=== PATIENT | female | born 1965 | race Caucasian/White ===

== ENCOUNTER 2023-07-14 16:31 | Emergency (ER) | payer MEDICAID, OTHER ==
[~2023-07-14] VITALS: Ht 165.1 cm; Wt 72.4 kg
[2023-07-14 18:29] LABS: Urine Bacteria NONE SEEN /hpf (None Seen); Urine Blood Negative /uL (Negative); Urine Clarity HAZY (Clear); Urine Color Yellow (Yellow); Urine Hyaline Cast FEW /lpf (0 - 2); Urine Mucus FEW (None Seen); Urine Protein, UAD 1+ (Negative); Urine Specific Gravity 1.035 (1.001-1.035); Urine WBC 8 /hpf (0 - 5); Urine pH 5.5 (5.0-8.0)
[2023-07-14] MEDS: HYDROmorphone HCL 2 MG/ML VL/or syr IM ONE (18:46)
[2023-07-14 19:06] LABS: Basophils # (auto) 0 10 ^3/uL (0-0.2); Basophils % (auto) 0.2 % (0.0-2.0); Eosinophils # (auto) 0.2 10 ^3/uL (0-0.8); Hematocrit 49.3 % (36.0-46.0); Hemoglobin 16.4 g/dL (12.2-16.2); Lymphocytes # (auto) 2.3 10 ^3/uL (0.4-5.4); Lymphocytes % (auto) 21.2 % (10.0-50.0); Mean Corpuscular Hemoglobin 30.2 pg (28.0-32.0); Mean Corpuscular Hgb Conc. 33.3 g/dL (32.0-36.0); Mean Corpuscular Volume 90.8 fL (80.0-100.0); Monocytes # (auto) 0.6 10 ^3/uL (0-1.3); Neutrophils # (auto) 7.6 10 ^3/uL (1.6-8.6); Neutrophils % (auto) 70.6 % (37.0-80.0); Nucleated Red Blood Cells % 0.1 %; Red Blood Cells 5.43 10^6/uL (4.0-5.20); Red Cell Distribution Width 13.3 % (11.8-14.3); White Blood Cell 10.8 10^3/uL (4.4-10.8)
[2023-07-14 19:25] LABS: Alanine Aminotransferase 18 U/L (7-40); Albumin 4.7 g/dL (3.2-4.8); Alkaline Phosphatase 87 U/L (46-116); Anion Gap 9 (5-15); Aspartate Aminotransferase 14 U/L (13-40); BUN/Creatinine Ratio 16.7 (10.0-20.0); Blood Urea Nitrogen 17 mg/dL (9-23); Carbon Dioxide 27 mmol/L (20-30); Chloride 102 mmol/L (98-107); Glucose 242 mg/dL (74-106); Potassium 4.6 mmol/L (3.5-5.1); Sodium 138 mmol/L (136-145)
[2023-07-14 19:26] LABS: Bilirubin, Total 0.4 mg/dL (0.2-1.0); Total Protein 8.2 g/dL (5.7-8.2)
[2023-07-14 19:29] LABS: Lactic Acid w/Reflex 3.7 mmol/L (0.4-2.0)
[2023-07-14 19:39] LABS: CRP High Sensitivity 0.41 mg/dL (<1.0)
[2023-07-14] MEDS: SODIUM CHLORIDE 0.9% 1,000 ML IV ONE (21:30)
[2023-07-14] MEDS: NITROFURANTOIN 100 mg CAP PO ONE (21:34)
[2023-07-14] MEDS: ONDANSETRON HCL 4 MG/2 ML VIAL IV ONE (21:38)
[2023-07-14] MEDS ORDERED: NITR-87 PO (22:44)
[2023-07-14] MEDS ORDERED: IBUP-1455 PO (22:44)
[2023-07-14] MEDS ORDERED: ACE3T PO (22:44)
[2023-07-14 22:55] VITALS: BP 115/73; PULSE 81; RESP 17; TEMP 97.6; O2SAT 97
== END 2023-07-14 22:56 | disposition home or self-care (01) ==
LOC: ER 16:31
DX: N39.0 Urinary tract infection, site not specified (principal); Z88.8 Allergy status to other drugs, medicaments and biological substances
CPT/HCPCS: 36415; 74176; 80053; 81001; 83605; 85025; 86141; 96361; 96372; 96374; 99285; J1170; J2405; J7030

== ENCOUNTER 2024-06-02 20:51 | Emergency (ER) | payer MEDICAID ==
[~2024-06-02] VITALS: Ht 165.1 cm; Wt 68.2 kg
[~2024-06-02 20:51] MED LIST: ACE3T PO; IBUP-1455 PO; NITR-87 PO
[2024-06-02 21:13] VITALS: BP 165/87; RESP 18; O2SAT 96
[2024-06-02 21:15] VITALS: PULSE 97
--- NOTE | 2024-06-02 21:15 | ED.PDOC ---
HPI Comments 58 y.o female with PMHx of DM, HLD, and neuropathy, presents to the ED for a chief complaint of chest pain radiating to bilateral arms, jaws and back that started at 0900 today. Patient reports pain worsened over the last hour, described as a tightness sensation and is constant. Patient did take 2 Ibuprofen prior to coming in which improved pain levels. Patient mentions being taken off Ozempic a couple weeks ago and was told in the past she was at risk of CAD but is unsure of specific diagnose nor has she followed up with a lamina searcher. Patient states she is under a lot of stress recently. She denies any nausea, vomiting, fever, chills, leg swelling, or SOB. Time Seen by MD: 21:07 Primary Care Provider: LISA Concepcion Notes: Nurses Notes, Medications, Allergies Allergies: Coded Allergies: Penicillins (Verified Allergy, Unknown, 07/14/23) Home Meds Active Scripts Ibuprofen Micronized (Ibuprofen) 800 Mg Tab, 800 MG PO Q8HP PRN, #20 TAB Prov:ANTELMO MITTAL PAC 07/14/23 Acetaminophen W/ Codeine (Tylenol W/Cod #3) 1 Tab Tb, 1 TAB PO Q6HP PRN, #15 TAB Prov:ANTELMO MITTAL PAC 07/14/23 Nitrofurantoin Monohydrate Mac (Macrobid) 100 Mg Cap, 100 MG PO BID for 5 Days, #10 CAP Prov:ANTELMO MITTAL PAC 07/14/23 Information Source: Patient Mode of Arrival: Ambulatory Severity: Moderate Timing: Hours Duration: Since onset Location: Substernal Radiation: Back, Jaw, Arm (R), Arm (L) Quality: Tightness Onset: At Rest Cardiac Risk Factors: Hyperlipidemia, Diabetes PE Risk Factors: None History of: None Modifying Factors: Nothing Past Medical History PAST MEDICAL HISTORY: DM, High Lipids Surgical History: Denies all surgeries FOUNDATION DRILL OPERATOR History: No Pertinent FOUNDATION DRILL OPERATOR History Family History Family History: Reviewed,noncontributory to illness, No family hx of Cancer, No family hx of DM, No family hx of Heart melanie, No family hx of HTN, No family hx ofKidney melanie, No family hx of Liver melanie, No family hx of Lung melanie, No family hx of Stroke Social History Smoker: Non-Smoker Alcohol: Denies ETOH Use Drugs: Denies Drug Use Lives In: Home Constitutional: denies: chills, diaphoresis, fatigue, fever, malaise, sweats, weakness, others EENTM: denies: blurred vision, double vision, ear bleeding, ear discharge, ear drainage, ear pain, ear ringing, eye pain, eye redness, hearing loss, mouth pain, mouth swelling, nasal discharge, nose bleeding, nose congestion, nose pain, photophobia, tearing, throat pain, throat swelling, voice changes, others Respiratory: denies: cough, hemoptysis, orthopnea, SOB at rest, shortness of breath, SOB with excertion, stridor, wheezing, others Cardiovascular: reports: chest pain, left arm pain; denies: dizzy spells, diaphoresis, Dyspnea on exertion, edema, irregular heart beat, lightheadedness, palpitations, PND, syncope, others Gastrointestinal: denies: abdomen distended, abdominal pain, blood streaked bowels, constipated, diarrhea, dysphagia, difficulty swallowing, hematemesis, melena, nausea, poor appetite, poor fluid intake, rectal bleeding, rectal pain, vomiting, others Genitourinary: denies: abnormal vagina bleeding, burning, dyspareunia, dysuria, flank pain, frequency, hematuria, incontinence, pain, , vagina discharge, urgency, others Neurological: denies: dizziness, fainting, headache, left sided numbness, left sided weakness, numbness, paresthesia, pre-existing deficit, right sided numbness, right sided weakness, seizure, speech problems, tingling, tremors, weakness, others Musculoskeletal: reports: back pain, others (right arm and jaw pain ); denies: gout, joint pain, joint swelling, muscle pain, muscle stiffness, neck pain Integumetry: denies: bruises, change in color, change in hair/nails, dryness, laceration, lesions, lumps, rash, wounds, others Allergic/Immunocompromised: denies: Difficulty Healing, Frequent Infections, Hives, Itching, others Hematologic/Lymphatic: denies: anemia, blood clots, easy bleeding, easy bruising, swollen glands, others Endocrine: denies: excessive hunger, excessive sweating, excessive thirst, excessive urination, flushing, intolerance to cold, intolerance to heat, unexplained weight gain, unexplained weight loss, others Psychiatric: denies: anxiety, bipolar disorder, depression, hopeless, panic disorder, schizophrenia, sleepless, suicidal, others All Other Systems: Reviewed and Negative Physical Exam General Appearance: No Apparent Distress, Normal HEENT: Normal ENT Inspection, Pharynx Normal, TMs Normal Neck: Full Range of Motion, Non-Tender, Normal, Normal Inspection Respiratory: Chest Non-Tender, Lungs Clear, No Accessory Muscle Use, No Respiratory Distress, Normal Breath Sounds Cardiovascular: No Edema, No JVD, No Murmur, No Gallop, Normal Peripheral Pulses, Regular Rate/Rhythm Breast Exam: Deferred Gastrointestinal: No Organomegaly, Non Tender, No Pulsatile Mass, Normal Bowel Sounds, Soft Genitalia: Deferred Pelvic: Deferred Rectal: Deferred Extremities: No calf tenderness, Normal capillary refill, Normal inspection, Normal range of motion, Non-tender, No pedal edema Musculoskeletal : Apperance: Normal Neurologic: Alert, clinic lead II-XII nml as Tested, No Motor Deficits, Normal Affect, Normal Mood, No Sensory Deficits Cerebellar Function: Normal Reflexes: Normal Skin: Dry, Normal Color, Warm Lymphatic: No Adenopathy EKG EKG : Pulse Rate (adult): 97 Cardiac Rhythm: NSR Was a procedure done? Was a procedure done?: No CP Differential Dx Differential Diagnosis: Anxiety / Panic Attack, Atrial Dysrhythmia, Heart Failure, MT Differential Diagnosis: Angina, Chest Wall Pain, Cholelithiasis, Costochondritis, Myocardial Infarction, Pericarditis X-Ray, Labs, Meds, VS Vital Signs Date Time Temp Pulse Resp B/P (MAP) Pulse Ox O2 Delivery O2 Flow Rate FiO2 06/02/24 21:15 97 06/02/24 21:13 98.7 97 18 165/87 (113) 96 06/02/24 21:02 97 Lab Test 06/02/24 21:24 Range/Units White Blood Count 9.4 4.4-10.8 10^3/uL Red Blood Count 4.76 4.0-5.20 10^6/uL Hemoglobin 14.5 12.2-16.2 g/dL Hematocrit 43.0 36.0-46.0 % Mean Corpuscular Volume 90.4 80.0-100.0 fL Mean Corpuscular Hemoglobin 30.5 28.0-32.0 pg Mean Corpuscular Hemoglobin Concent 33.7 32.0-36.0 g/dL Red Cell Distribution Width 13.3 11.8-14.3 % Platelet Count 386 140-450 10^3/uL Mean Platelet Volume 7.2 6.9-10.8 fL Neutrophils (%) (Auto) 68.5 37.0-80.0 % Lymphocytes (%) (Auto) 24.5 10.0-50.0 % Monocytes (%) (Auto) 4.7 0.0-12.0 % Eosinophils (%) (Auto) 1.8 0.0-7.0 % Basophils (%) (Auto) 0.5 0.0-2.0 % Neutrophils # (Auto) 6.5 1.6-8.6 10 ^3/uL Lymphocytes # (Auto) 2.3 0.4-5.4 10 ^3/uL Monocytes # (Auto) 0.4 0-1.3 10 ^3/uL Eosinophils # (Auto) 0.2 0-0.8 10 ^3/uL Basophils # (Auto) 0 0-0.2 10 ^3/uL Nucleated Red Blood Cells 0.1 % Prothrombin Time 10.2 9.3-11.8 sec Prothrombin Time INR 0.96 0.9-1.15 Activated Partial Thromboplast Time 27.8 24.5-34.5 SEC Sodium Level 136 136-145 mmol/L Potassium Level 3.9 3.5-5.1 mmol/L Chloride Level 103 98-107 mmol/L Carbon Dioxide Level 27 20-31 mmol/L Anion Gap 6 5-15 Blood Urea Nitrogen 15 9-23 mg/dL Creatinine 0.97 0.550-1.02 mg/dL Glomerular Filtration Rate Calc 68 >90 mL/min BUN/Creatinine Ratio 15.5 10.0-20.0 Serum Glucose 365 H 74-106 mg/dL Calcium Level 10.1 8.7-10.4 mg/dL Magnesium Level 1.8 1.6-2.6 mg/dL Total Bilirubin 0.2 0.2-1.0 mg/dL Aspartate Amino Transferase (AST) 14 13-40 U/L Alanine Aminotransferase (ALT) 19 7-40 U/L Alkaline Phosphatase 112 46-116 U/L Troponin I High Sensitivity 7 </=34 ng/L B-Type Natriuretic Peptide 20.47 0-100 pg/mL Total Protein 7.5 5.7-8.2 g/dL Albumin 4.4 3.2-4.8 g/dL X-Ray, Labs, Meds, VS Comment Imaging: X-rays and CT scans were reviewed and interpreted by this provider, imaging shows no fractures and no pathological disease. Pending radiology review. Laboratory: Labs reviewed and interpreted by this provider. No significant abnormalities noted. Patient has prior medical visits reviewed. Med reconciliation performed Vital signs reviewed Time of 1ST Reevaluation: 21:14 Reevaluation 1ST: Unchanged Patient Education/Counseling: Diagnosis, Treatment, Prognosis, Need For Follow Up (Patient advised to follow-up in the emergency room in the next 24 to 48 hours if symptoms do not improve. Advised follow-up with PCP in the next 3 to 5 days. Patient verbalized understanding. ) Family Education/Counseling: No Family Present Departure 1 Departure Time of Disposition: 23:40 Impression: Primary Impression: Musculoskeletal chest pain Additional Impression: Anxiety Disposition: 01 HOME / SELF CARE / HOMELESS Condition: Fair Discharged With: Self Critical Care Note Critical Care Time?: No Stability Stability form required: No Heart Score Heart Score: Heart Score Response (Comments) Value History Slightly Suspicious 0 EKG Normal 0 Age 45-64 1 Risk Factors >3 or Hx ASHD 2 Troponin Normal limit 0 Total 3 I personally scribed for JACKY PACHECO ([facility]) on 06/02/24 at 21:15. Electronically submitted by Isaura Acosta ([facility]). JACKY PACHECO Jun 02, 2024 21:15
[2024-06-02 21:34] LABS: Basophils # (auto) 0 10 ^3/uL (0-0.2); Basophils % (auto) 0.5 % (0.0-2.0); Eosinophils # (auto) 0.2 10 ^3/uL (0-0.8); Eosinophils % (auto) 1.8 % (0.0-7.0); Hemoglobin 14.5 g/dL (12.2-16.2); Lymphocytes # (auto) 2.3 10 ^3/uL (0.4-5.4); Lymphocytes % (auto) 24.5 % (10.0-50.0); Mean Corpuscular Hemoglobin 30.5 pg (28.0-32.0); Mean Corpuscular Hgb Conc. 33.7 g/dL (32.0-36.0); Mean Corpuscular Volume 90.4 fL (80.0-100.0); Monocytes # (auto) 0.4 10 ^3/uL (0-1.3); Monocytes % (auto) 4.7 % (0.0-12.0); Neutrophils # (auto) 6.5 10 ^3/uL (1.6-8.6); Neutrophils % (auto) 68.5 % (37.0-80.0); Nucleated Red Blood Cells % 0.1 %; Platelet Count (auto) 386 10^3/uL (140-450); Red Blood Cells 4.76 10^6/uL (4.0-5.20); Red Cell Distribution Width 13.3 % (11.8-14.3); White Blood Cell 9.4 10^3/uL (4.4-10.8)
[2024-06-02 21:52] LABS: Alanine Aminotransferase 19 U/L (7-40); Albumin 4.4 g/dL (3.2-4.8); Alkaline Phosphatase 112 U/L (46-116); Anion Gap 6 (5-15); Aspartate Aminotransferase 14 U/L (13-40); BUN/Creatinine Ratio 15.5 (10.0-20.0); Blood Urea Nitrogen 15 mg/dL (9-23); Calcium 10.1 mg/dL (8.7-10.4); Carbon Dioxide 27 mmol/L (20-31); Chloride 103 mmol/L (98-107); Magnesium 1.8 mg/dL (1.6-2.6); Potassium 3.9 mmol/L (3.5-5.1); Sodium 136 mmol/L (136-145); Total Protein 7.5 g/dL (5.7-8.2)
[2024-06-02 22:03] LABS: INR 0.96 (0.9-1.15); Partial Thromboplastin Time 27.8 SEC (24.5-34.5); Prothrombin Time 10.2 sec (9.3-11.8)
[2024-06-02 22:27] LABS: Bilirubin, Total 0.2 mg/dL (0.2-1.0); Glucose 365 mg/dL (74-106)
--- NOTE | 2024-06-03 17:56 | ECG ---
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
== END 2024-06-03 01:17 | disposition home or self-care (01) ==
LOC: ER 20:51
DX: F41.9 Anxiety disorder, unspecified (principal); R07.89 Other chest pain; E11.9 Type 2 diabetes mellitus without complications; E78.5 Hyperlipidemia, unspecified; Z88.0 Allergy status to penicillin; Z79.899 Other long term (current) drug therapy
CPT/HCPCS: 36415; 80053; 82962; 83735; 83880; 84484; 85025; 85610; 85730; 93005

== ENCOUNTER 2024-06-06 20:21 | Emergency (ER) | payer MEDICAID ==
[~2024-06-06] VITALS: Ht 165.1 cm; Wt 68.1 kg
--- NOTE | 2024-06-06 20:47 | ECG ---
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
--- NOTE | 2024-06-06 20:51 | ED.PDOC ---
HPI Comments 58-year-old female who came to emergency room via EMS for chest pains. Patient has a history of diabetes and dyslipidemia, states for the past 5 days she has been having intermittent episodes of diffuse chest pains, which she would describe as the worst pain in her life. Pain would radiate to her left arm and into her jaw area. Worsening of chest pain the past hour. Denies any nausea, vomiting or shortness of breath. Upon arrival blood pressure was 175/85 mm Hg. Patient was seen here 4 days ago for same complaints, diagnostics were made, and was diagnosed to be musculoskeletal chest pain, anxiety. Chief Complaint: Chest Pain Time Seen by MD: 20:49 Primary Care Provider: LISA Reviewed Notes: Nurses Notes Allergies: Coded Allergies: Penicillins (Verified Allergy, Unknown, 07/14/23) Home Meds Active Scripts Ibuprofen Micronized (Ibuprofen) 800 Mg Tab, 800 MG PO Q8HP PRN, #20 TAB Prov:ANTELMO MITTAL PAC 07/14/23 Acetaminophen W/ Codeine (Tylenol W/Cod #3) 1 Tab Tb, 1 TAB PO Q6HP PRN, #15 TAB Prov:ANTELMO MITTAL PAC 07/14/23 Nitrofurantoin Monohydrate Mac (Macrobid) 100 Mg Cap, 100 MG PO BID for 5 Days, #10 CAP Prov:ANTELMO MITTAL PAC 07/14/23 Information Source: Patient Mode of Arrival: EMS Severity: Moderate Timing: Days Duration: Intermittent Prehospital treatment: None Location: Chest (R), Chest (L) Radiation: Neck, Jaw, Arm (L) Quality: Aching Onset: With Light Exertion Cardiac Risk Factors: Hyperlipidemia, Diabetes PE Risk Factors: None History of: Similar pain in past Modifying Factors: Nothing Review of Systems REVIEW OF SYSTEMS: No fever, no chills, or fatigue HEENT: No sore throat, no earache, no congestion, no neck pain. Cardiac: (+) chest pain. No palpitations. Lungs: No shortness of breath, no cough. GI: No nausea, no vomiting, no diarrhea, no constipation, no abdominal pain : No dysuria, frequency, or urgency. No hematuria. Musculoskeletal: No joint pain , no joint swelling, no extremity edema. Skin: No rash, no itching. Neuro: No headache, no dizziness, no weakness Vital Signs Vital Signs Date Time Temp Pulse Resp B/P (MAP) Pulse Ox O2 Delivery O2 Flow Rate FiO2 06/06/24 20:51 92 06/06/24 20:23 98.0 24 175/85 (115) 95 Physical Exam General: Awake, alert and oriented. No acute distress. Skin: Skin in warm, dry and intact. Appropriate color for ethnicity. Nailbeds pink with no cyanosis. HEENT: The head is normocephalic and atraumatic. Conjunctivae are clear without exudates or hemorrhage. Sclera is non-icteric. EOM are intact. No signs of nystagmus. Eyelids are normal in appearance without swelling or lesions. Oral mucosa is pink and moist Neck: The neck is supple with normal range of motion. No JVD. Cardiac: Heart rate and rhythm are normal. No murmurs, gallops, or rubs are auscultated. Respiratory: No signs of respiratory distress. Lung sounds are clear in all lobes bilaterally without rales, ronchi, or wheezes. Abdominal: Abdomen is soft, non-tender without distention. Bowel sounds are present and normoactive in all four quadrants. Extremities: Upper and lower extremities are atraumatic in appearance without deformity or edema. Neurological: The patient is awake, alert and oriented to person, place, and time with normal speech. Speech is clear. There is no facial asymmetry. Psychiatric: Appropriate mood and affect. Good judgement and insight. No visual or auditory hallucinations. EKG : Pulse Rate (adult): 92 Cardiac Rhythm: NSR Past Medical History PAST MEDICAL HISTORY: DM, High Lipids Surgical History: Denies all surgeries SENIOR DEVOPS ENGINEER History: No Pertinent SENIOR DEVOPS ENGINEER History Family History Family History: Reviewed,noncontributory to illness Social History Smoker: Non-Smoker Alcohol: Denies ETOH Use Drugs: Denies Drug Use Lives In: Home Was a procedure done? Was a procedure done?: No CP Differential Dx Differential Diagnosis: Angina, Anxiety / Panic Attack Differential Diagnosis: Angina, Chest Wall Pain, Costochondritis, Esophageal reflux/spasm, Gastritis, Myocardial Infarction, Pneumonia X-Ray, Labs, Meds, VS Vital Signs Date Time Temp Pulse Resp B/P (MAP) Pulse Ox O2 Delivery O2 Flow Rate FiO2 06/06/24 20:51 92 06/06/24 20:26 92 06/06/24 20:23 98.0 90 24 175/85 (115) 95 Lab Test 06/06/24 21:47 06/06/24 20:50 Range/Units Troponin I High Sensitivity 14 6 </=34 ng/L White Blood Count 9.1 4.4-10.8 10^3/uL Red Blood Count 4.64 4.0-5.20 10^6/uL Hemoglobin 14.0 12.2-16.2 g/dL Hematocrit 42.1 36.0-46.0 % Mean Corpuscular Volume 90.7 80.0-100.0 fL Mean Corpuscular Hemoglobin 30.3 28.0-32.0 pg Mean Corpuscular Hemoglobin Concent 33.4 32.0-36.0 g/dL Red Cell Distribution Width 13.4 11.8-14.3 % Platelet Count 392 140-450 10^3/uL Mean Platelet Volume 6.9 6.9-10.8 fL Neutrophils (%) (Auto) 69.3 37.0-80.0 % Lymphocytes (%) (Auto) 23.4 10.0-50.0 % Monocytes (%) (Auto) 5.1 0.0-12.0 % Eosinophils (%) (Auto) 1.9 0.0-7.0 % Basophils (%) (Auto) 0.3 0.0-2.0 % Neutrophils # (Auto) 6.3 1.6-8.6 10 ^3/uL Lymphocytes # (Auto) 2.1 0.4-5.4 10 ^3/uL Monocytes # (Auto) 0.5 0-1.3 10 ^3/uL Eosinophils # (Auto) 0.2 0-0.8 10 ^3/uL Basophils # (Auto) 0 0-0.2 10 ^3/uL Nucleated Red Blood Cells 0.1 % D-Dimer, Quantitative 0.35 0.0-0.49 mg/L FEU Sodium Level 137 136-145 mmol/L Potassium Level 4.2 3.5-5.1 mmol/L Chloride Level 102 98-107 mmol/L Carbon Dioxide Level 28 20-31 mmol/L Anion Gap 7 5-15 Blood Urea Nitrogen 20 9-23 mg/dL Creatinine 0.92 0.550-1.02 mg/dL Glomerular Filtration Rate Calc 72 >90 mL/min BUN/Creatinine Ratio 21.7 H 10.0-20.0 Serum Glucose 350 H 74-106 mg/dL Calcium Level 10.2 8.7-10.4 mg/dL Magnesium Level 1.9 1.6-2.6 mg/dL Total Bilirubin 0.3 0.2-1.0 mg/dL Aspartate Amino Transferase (AST) 16 13-40 U/L Alanine Aminotransferase (ALT) 24 7-40 U/L Alkaline Phosphatase 83 46-116 U/L Total Protein 7.2 5.7-8.2 g/dL Albumin 4.2 3.2-4.8 g/dL Lipase 41 12-53 U/L XY CHEST TWO VIEWS ROUTINE CLINICAL HISTORY: chest pain COMPARISON: None TECHNIQUE: Frontal and lateral view of the chest was obtained FINDINGS: Lines and Tubes: None Lungs: No focal consolidation. Pleura: No effusion. No pneumothorax. Cardiomediastinal contours: Unremarkable Bones: No acute osseous abnormality. IMPRESSION: 1. No acute cardiopulmonary disease. X-Ray, Labs, Meds, VS Comment CHEST X-RAY: AGREE WITH RADIOLOGIST'S INTERPRETATION EKG INDEPENDENT INTERPRETATION: SINUS RHYTHM, NO STEMI Time of 1ST Reevaluation: 20:44 Reevaluation 1ST: Unchanged Patient Education/Counseling: Diagnosis, Treatment, Other (DISCHARGE DIAGNOSIS, FOLLOW UP INSTRUCTIONS) Family Education/Counseling: No Family Present Departure 1 Departure Time of Disposition: 23:07 Impression: Primary Impression: Chest pain Disposition: 01 HOME / SELF CARE / HOMELESS Condition: Stable Additional Instructions: ED DISCHARGE INSTRUCTIONS INSTRUCTIONS: PLEASE READ ALL INSTRUCTIONS PROVIDED IN THIS PACKET CAREFULLY. ALTHOUGH YOU HAVE BEEN DISCHARGED FROM THE EMERGENCY DEPARTMENT, THIS DOES NOT MEAN THAT YOU HAVE A "CLEAN BILL OF HEALTH". []NO DEFINITIVE DIAGNOSIS FOR YOUR SYMPTOMS HAS BEEN MADE TODAY. IT IS POSSIBLE THAT YOU ARE IN THE PROCESS OF DEVELOPING A SERIOUS ILLNESS. THIS IS WHY YOU MUST RETURN TO THE ED WITHOUT FAIL IF ANY NEW OR WORSENING SYMPTOMS (ESPECIALLY IF YOUR SYMPTOMS INCLUDE CHEST PAIN, TROUBLE BREATHING, ABDOMINAL PAIN, FEVER, HEADACHE, CONFUSION, TROUBLE SEEING, OR TROUBLE WALKING) IT IS ALSO VERY IMPORTANT THAT YOU SEE A PRIMARY CARE DOCTOR WITHIN THE NEXT 3-5 DAYS TO FOLLOW UP. IF YOU ARE UNABLE TO GET AN APPOINTMENT, RETURN TO THE ED FOR RE-EVALUATION. CHEST PAIN EDUCATION THERE ARE MANY THINGS THAT CAN CAUSE CHEST PAIN. SOME ARE NOT SERIOUS AND WILL GET BETTER ON THEIR OWN IN A FEW DAYS. BUT SOME KINDS OF CHEST PAIN NEED MORE TESTING AND TREATMENT. YOUR DOCTOR MAY HAVE RECOMMENDED A FOLLOW-UP VISIT IN THE NEXT FEW DAYS. IF YOU ARE NOT GETTING BETTER, YOU MAY NEED MORE TESTS OR TREATMENT. EVEN THOUGH YOUR DOCTOR HAS RELEASED YOU, YOU STILL NEED TO WATCH FOR ANY PROBLEMS. THE DOCTOR CAREFULLY CHECKED YOU, BUT SOMETIMES PROBLEMS CAN DEVELOP LATER. IF YOU HAVE NEW SYMPTOMS OR IF YOUR SYMPTOMS DO NOT GET BETTER, GET MEDICAL CARE RIGHT AWAY. IF YOU HAVE WORSE OR DIFFERENT CHEST PAIN OR PRESSURE THAT LASTS MORE THAN 5 MINUTES OR YOU PASSED OUT (LOST CONSCIOUSNESS), CALL 911 OR SEEK OTHER EMERGENCY HELP RIGHT AWAY. A MEDICAL VISIT IS ONLY ONE STEP IN YOUR TREATMENT. EVEN IF YOU FEEL BETTER, YOU STILL NEED TO DO WHAT YOUR DOCTOR RECOMMENDS, SUCH GOING TO ALL SUGGESTED FOLLOW-UP APPOINTMENTS AND TAKING MEDICINES EXACTLY DIRECTED. THIS WILL HELP YOU RECOVER AND HELP PREVENT FUTURE PROBLEMS. HOW CAN YOU CARE FOR YOURSELF AT HOME? REST UNTIL YOU FEEL BETTER. TAKE YOUR MEDICINE EXACTLY PRESCRIBED. CALL YOUR DOCTOR IF YOU THINK YOU ARE HAVING A PROBLEM WITH YOUR MEDICINE. DO NOT DRIVE AFTER TAKING A PRESCRIPTION PAIN MEDICINE. WHEN SHOULD YOU CALL FOR HELP? CALL 911 IF: YOU PASSED OUT (LOST CONSCIOUSNESS). YOU HAVE SEVERE DIFFICULTY BREATHING. YOU HAVE SYMPTOMS OF A HEART ATTACK. THESE MAY INCLUDE: CHEST PAIN OR PRESSURE, OR A STRANGE FEELING IN YOUR CHEST. SWEATING. SHORTNESS OF BREATH. NAUSEA OR VOMITING. PAIN, PRESSURE, OR A STRANGE FEELING IN YOUR BACK, NECK, JAW, OR UPPER BELLY OR IN ONE OR BOTH SHOULDERS OR ARMS. LIGHTHEADEDNESS OR SUDDEN WEAKNESS. A FAST OR IRREGULAR HEARTBEAT. AFTER YOU CALL 911, THE FACILITY ADMINISTRATOR MAY TELL YOU TO CHEW 1 ADULT-STRENGTH OR 2 TO 4 LOW-DOSE ASPIRIN. WAIT FOR AN AMBULANCE. DO NOT TRY TO DRIVE YOURSELF. CALL YOUR DOCTOR NOW OR SEEK IMMEDIATE MEDICAL CARE IF: YOU HAVE ANY TROUBLE BREATHING. YOU HAVE NEW OR DIFFERENT CHEST PAIN. YOU ARE DIZZY OR LIGHTHEADED, OR YOU FEEL LIKE YOU MAY FAINT. WATCH CLOSELY FOR CHANGES IN YOUR HEALTH, AND BE SURE TO CONTACT YOUR DOCTOR IF YOU DO NOT GET BETTER EXPECTED. CURRENT OF: DECEMBER 26, 2023 AUTHOR: [employer] STAFF? Comments [age] YO FEMALE WITH CHEST EKG NEGATIVE FOR SIGNS OF ISCHEMIA X 2. HIGH SENSITIVITY TROPONIN NEGATIVE X2. CXR SHOWS NO ACUTE PROCESS. PRESENTATION NOT SUGGESTIVE OF ACUTE CORONARY SYNDROME, PULMONARY EMBOLISM OR AORTIC DISSECTION. PATIENT IMPROVED AT TIME OF DISCHARGE. NO HYPOXIA, RESPIRATORY DISTRESS OR DYSPNEA AT DISCHARGE. PATIENT ABLE TO AMBULATE WITHOUT DIFFICULTY. Number & Complexity of Problems Addressed 1 acute or chronic illness that poses a threat to life or bodily function: CHEST PAIN Extensive evaluation was performed to identify or rule out: DIFFERENTIAL DIAGNOSES CONSIDERED INCLUDE ACUTE ISCHEMIC CORONARY SYNDROME, AORTIC DISSECTION, CARDIAC TAMPONADE, MEDIASTINITIS, PULMONARY EMBOLUS, PNEUMOTHORAX, TENSION PNEUMOTHORAX, ESOPHAGEAL RUPTURE, CORONARY ARTERY VASOSPASM, MYOCARDITIS, PERICARDITIS, PNEUMONIA, PULMONARY EDEMA, ESOPHAGEAL TEAR, PANCREATITIS, AORTIC STENOSIS, DILATED CARDIOMYOPATHY, HYPERTROPHIC CARDIOMYOPATHY, MITRAL VALVE PROLAPSE, MALIGNANCY, PLEURITIS, PNEUMOMEDIASTINUM, PRIMARY PULMONARY HYPERTENSION, CHOLECYSTITIS, ESOPHAGEAL SPASM, ESOPHAGUS, GASTRITIS, GERD, PEPTIC ULCER DISEASE, COSTOCHONDRITIS, FIBROMYALGIA, RIB FRACTURE, HERPES ZOSTER, RADICULAR SYNDROMES, THORACIC OUTLET SYNDROME, SOMATIZATION. Amount and/or Complexity of Data to be Reviewed/Analyzed Tests reviewed: DIAGNOSTIC RESULTS SECTION Documents reviewed: [06/02/2024] Independent historian: EMS Independent interpretation of tests: CHEST X-RAY, EKG Discussion of management or test interpretation with external physician/other qualified health senior care manager: N/A DECISION REGARDING HOSPITALIZATION OR ESCALATION OF HOSPITAL LEVEL OF CARE: RISKS AND BENEFITS OF ADMISSION FOR FURTHER TREATMENT OF PATIENT'S CONDITION WAS CONSIDERED HOWEVER DUE TO PATIENT'S STABLE CONDITION PATIENT WILL BE DISCHARGED TO FOLLOW UP CLOSELY OR RETURN TO CARE FOR WORSENING OF CONDITION OR INABILITY TO FOLLOW UP. Critical Care Note Critical Care Time?: No Stability Stability form required: No Heart Score Heart Score: Heart Score Response (Comments) Value History Slightly Suspicious 0 EKG Normal 0 Age 45-64 1 Risk Factors 1 or 2 risk factors 1 Troponin Normal limit 0 Total 2 I personally scribed for ANIRUDH MARC MD ([email or web address]) on 06/06/24 at 20:51. Electronically submitted by Mateo Orantes ([email or web address]). I personally scribed for ANIRUDH MARC MD ([email or web address]) on 06/06/24 at 20:58. Electronically submitted by Mateo Orantes ([email or web address]). ANIRUDH MARC MD Jun 06, 2024 20:51
[2024-06-06 21:20] LABS: Basophils # (auto) 0 10 ^3/uL (0-0.2); Basophils % (auto) 0.3 % (0.0-2.0); Eosinophils # (auto) 0.2 10 ^3/uL (0-0.8); Eosinophils % (auto) 1.9 % (0.0-7.0); Hematocrit 42.1 % (36.0-46.0); Lymphocytes # (auto) 2.1 10 ^3/uL (0.4-5.4); Lymphocytes % (auto) 23.4 % (10.0-50.0); Mean Corpuscular Hemoglobin 30.3 pg (28.0-32.0); Mean Corpuscular Hgb Conc. 33.4 g/dL (32.0-36.0); Mean Corpuscular Volume 90.7 fL (80.0-100.0); Monocytes # (auto) 0.5 10 ^3/uL (0-1.3); Monocytes % (auto) 5.1 % (0.0-12.0); Neutrophils # (auto) 6.3 10 ^3/uL (1.6-8.6); Neutrophils % (auto) 69.3 % (37.0-80.0); Nucleated Red Blood Cells % 0.1 %; Platelet Count (auto) 392 10^3/uL (140-450); Red Blood Cells 4.64 10^6/uL (4.0-5.20); Red Cell Distribution Width 13.4 % (11.8-14.3); White Blood Cell 9.1 10^3/uL (4.4-10.8)
[2024-06-06 21:28] LABS: Alanine Aminotransferase 24 U/L (7-40); Albumin 4.2 g/dL (3.2-4.8); Alkaline Phosphatase 83 U/L (46-116); Anion Gap 7 (5-15); Aspartate Aminotransferase 16 U/L (13-40); BUN/Creatinine Ratio 21.7 (10.0-20.0); Bilirubin, Total 0.3 mg/dL (0.2-1.0); Blood Urea Nitrogen 20 mg/dL (9-23); Calcium 10.2 mg/dL (8.7-10.4); Carbon Dioxide 28 mmol/L (20-31); Chloride 102 mmol/L (98-107); Lipase 41 U/L (12-53); Magnesium 1.9 mg/dL (1.6-2.6); Potassium 4.2 mmol/L (3.5-5.1); Sodium 137 mmol/L (136-145); Total Protein 7.2 g/dL (5.7-8.2)
[2024-06-06 21:32] LABS: Glucose 350 mg/dL (74-106)
[2024-06-07 00:04] VITALS: BP 135/79; PULSE 81; RESP 18; TEMP 98; O2SAT 95
--- NOTE | 2024-06-08 07:16 | ECG ---
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
== END 2024-06-07 00:07 | disposition home or self-care (01) ==
LOC: ER 20:21 → EDBD 20:21 → ER 06-07 00:07
DX: R07.9 Chest pain, unspecified (principal); M79.602 Pain in left arm; E11.9 Type 2 diabetes mellitus without complications; E78.5 Hyperlipidemia, unspecified; R94.31 Abnormal electrocardiogram [ECG] [EKG]; Z88.0 Allergy status to penicillin
CPT/HCPCS: 36415; 71046; 80053; 83690; 83735; 84484; 85025; 85379; 93005